=== PATIENT | female | born 1985 | race Caucasian/White ===

== ENCOUNTER 2017-06-08 20:43 | Emergency (ER) | payer MEDICAID ==
--- NOTE | 2017-06-08 21:54 | PD ---
HPI Chief Complaint spotting/clots Date Seen: Jun 08, 2017 Time Seen: 21:48 Travel History International Travel<30 Days: No Contact w/Intl Traveler<30Days: No Known Affected Area: No History of Present Illness HPI Pt is a 31y/o G1 @ 21.4wks. She has PNC with Dr. Randall. She presents for evaluation of spotting/VB. She states that she has a known low-lying placenta and has been on pelvic rest. She had some pink spotting last evening and then tonight passed two small clots and had red blood. She denies ctx, LOF. +FM. Pt has not had sexual intercourse in weeks. Weeks Gestation: 21 Para: 0 : 1 History Past Medical History Medical History: Denies Significant Hx Obstetric History Obstetric History 1. current, low lying placenta Past Surgical History Surgical History: No Previous Surgery Family History Family History: Negative Social History Alcohol Use: No Tobacco Use: No Substance Abuse: No Allergies-Medications (Allergen,Severity, Reaction): Coded Allergies: No Known Allergies (Unverified , 08/14/16) Home Meds No Active Prescriptions or Reported Meds Review of Systems Except as stated in HPI: all other systems reviewed are Neg Physical Exam Narrative General: well developed, well nourished, no acute distress HEENT: normocephalic atraumatic, extraocular movements intact, neck supple Abdomen: soft, gravid, nontender, nondistended Extremities: full range of motion Skin: normal coloration, no rashes, no suspicious skin lesions noted Neurologic: cranial nerves 2-12 grossly intact, normal muscle tone, normal gait Psychiatric: normal mood and affect, appropriate FHTs: present [place]: quiet Data Data Vital Signs Reviewed: Yes Orders Orders Vital Signs (Adult) .ON ADMISSION (06/08/17 21:47) ^ Labor Status (06/08/17 21:47) Heart (06/08/17 21:47) Us Ob Limited (06/08/17 ) MDM Plan 31y/o G1 @ 21.4wks with low lying placenta and VB. -- +FHTs -- US ordered to evaluate placenta demonstrates 2.0cm from os, no retroplacental clot, known cardiac abnormality (pt has f/u with MFM pending) Dispo: stable for d/c home with precautions; continue pelvic rest Diagnosis Diagnosis: Primary Impression: 21 weeks gestation of Additional Impression: Low lying placenta with hemorrhage, antepartum Scripts No Active Prescriptions or Reported Meds Marcie Cueva MD Jun 08, 2017 21:54
== END 2017-06-08 23:35 | disposition home or self-care (01) ==
LOC: HOBED 20:43
DX: O26.852 Spotting complicating pregnancy, second trimester (principal); O44.52 Low lying placenta with hemorrhage, second trimester; Z3A.21 21 weeks gestation of pregnancy
CPT/HCPCS: 76815; 99284

== ENCOUNTER → 2017-07-10 | Outpatient (CLI) | payer MEDICAID | LOC: HPND 09:20 | PROVIDERS: ATTEND Obstetrics & Gynecology | DX: O35.8XX0 Maternal care for other (suspected) fetal abnormality and damage, not applicable or unspecified (principal); O44.42 Low lying placenta NOS or without hemorrhage, second trimester; Z82.79 Family history of other congenital malformations, deformations and chromosomal abnormalities | CPT/HCPCS: 76811; 76825; 76827; 93325 ==